=== PATIENT | female | born 2000 | race Caucasian/White ===

== ENCOUNTER 2022-04-30 12:40 | Emergency (ER) | payer SELFPAY ==
--- NOTE | ~2022-04-30 | XR_ITS ---
EXAMINATION: XR CHEST CLINICAL INFORMATION: Shortness of breath COMPARISON: None TECHNIQUE: 2 views of the chest were obtained. FINDINGS: Cardiac silhouette is normal in size. The lungs are well aerated. There is no lobar consolidation. No pleural effusion or pneumothorax. No acute osseous abnormality. XR/XR chest 2V IMPRESSION: No acute pulmonary pathology.
[2022-04-30 13:16] VITALS: BP 141/92; PULSE 78; RESP 20; TEMP 36.7; O2SAT 100; BMI 21.0
[2022-04-30 13:44] LABS: COVID-19 Test Negative (Negative)
--- NOTE | 2022-04-30 15:15 | ED.SOB ---
HPI - SOB/Dyspnea General Chief Complaint: Upper Respiratory Symptoms Stated Complaint: Diff breathing Time Seen by Provider: 04/30/22 15:14 Source: patient Mode of arrival: ambulatory Limitations: no limitations History of Present Illness HPI Narrative: 21 y/o female with history of mild intermittent asthma who presents to the ER for evaluation of shortness of breath? forceful coughing? that started 4 days ago. She reports a stabbing pain in her left chest under her breast. It does not radiate and it comes and goes. It is worse with coughing and deep breaths. She denies sick contacts. No fever or chills. No sputum production. She has not been using her albuterol inhaler because she didn't think it would help. MD elicited complaint: shortness of breath and cough Pertinent past history: asthma Onset (ago): day(s) (4) Timing: intermittent Severity: moderate Exacerbating factors: movement, coughing and inspiration Relieving factors: rest Known history of: asthma Associated symptoms: chest pain, pain with inspiration and cough Treatment prior to arrival: none Related Data Home oxygen amount: none Previous Rx's Medication Instructions Recorded benzonatate 100 mg capsule 100 mg PO TID PRN cough #20 caps 04/30/22 ibuprofen 600 mg tablet 600 mg PO Q8H PRN pain #14 tabs 04/30/22 Allergies Allergy/AdvReac Type Severity Reaction Status Date / Time amoxicillin Allergy Hives Verified 04/30/22 13:19 Review of Systems Review of Systems: Constitutional: No Fever, No Chills ENT/Mouth: No sore throat, No Rhinorrhea Cardiovascular: + Chest Pain, + SOB Respiratory: No Cough, No Sputum, + Wheezing, No dyspnea Gastrointestinal: No Nausea, No Vomiting, No Diarrhea, No abdominal Pain Musculoskeletal: No joint pain, No Myalgias Skin: No Skin Lesions, No rash Neuro: No Weakness, No Dizziness, No Headache Psych: + Anxiety/Panic, No Depression Heme/Lymph: No Bruising, No Lymphadenopathy PMFSH Social History Social History Advance Directives: No Advance Directives Information Provided: No Physical Exam Vital Signs: Vital Signs: Last Vital Signs Temp 98.0 F 04/30/22 13:16 Pulse 78 04/30/22 13:16 Resp 20 04/30/22 13:16 BP 141/92 H 04/30/22 13:16 Pulse Ox 100 04/30/22 13:16 O2 Del Method 04/30/22 13:16 BMI result Body Mass Index 21.0 Appearance: Alert. Oriented X3. No acute distress. Eyes: Pupils equal, round and reactive to light. ENT: Pharynx normal. Neck: Normal inspection. Neck supple. CVS: Normal heart rate and rhythm. Pulses normal. Respiratory: No respiratory distress. Breath sounds normal. Mild chest wall tenderness at distal sternum, and left lower ribs Abdomen: Soft and nontender. +BS x4 Skin: Skin warm and dry. Normal skin color. Normal skin turgor. No rashes. Extremities: No lower extremity edema. No calf tenderness. Neuro/psych: Oriented X 3. No motor deficit. No sensory deficit. anxious and tearful at times. Course Course Course Narrative: 21-year-old female with history of mild intermittent asthma presents to the ER for evaluation of a nonproductive cough and shortness of breath for last 4 days. She also has associated left-sided chest wall pains that are worse with movement and coughing. She has reproducible pains on examination. Her saturations on arrival are 100% on room air. She is breathing comfortably. She is not tachycardic. Her chest x-ray is negative for pneumonia. She is negative for COVID. She is worried she may have a blood clot. Her PERC score is negative and she has no risk factors. She is not on control. No evidence of DVT on examination. Patient was reassured and encourage follow-up with her provider at the health clinic. Will start her on treatment for costochondritis and antitussive agent. Encouraged her to use her p.r.n. albuterol. Return precautions were discussed. She is stable for discharge home. MDM - SOB/Dyspnea Lab Data Labs: Lab Results 04/30/22 Range/Units 13:25 COVID-19 ([facility]) Negative (Negative) COVID-19 Clin Com See Note Critical Care Time Critical Care Time Critical Care Time: No Discharge Plan Discharge Clinical Impression: Acute costochondritis, Cough Patient Disposition: Home, Self-Care Additional Instructions: Your chest x-ray today was normal. Urine negative for COVID. The pain in your chest is most likely due to muscle pain called costochondritis. Take the prescribed medications as directed. Recommend using your albuterol inhaler when you have coughing fits or when you feel short of breath. Follow up with your student health If you develop new or worsening symptoms call 911 or come back to the ER for further evaluation. Prescriptions: New ibuprofen 600 mg tablet 600 mg PO Q8H PRN (Reason: pain) Qty: 14 0RF benzonatate 100 mg capsule 100 mg PO TID PRN (Reason: cough) Qty: 20 0RF
== END 2022-04-30 15:50 | disposition home or self-care (01) ==
PROVIDERS: Emergency Provider Emergency Medicine
DX: R05.9 Cough, unspecified (principal); M94.0 Chondrocostal junction syndrome [Tietze]; Z20.822 Contact with and (suspected) exposure to COVID-19
CPT/HCPCS: 71046; 87635; 99282; 99283

== ENCOUNTER 2024-08-16 03:16 | Emergency (ER) | payer OTHER, SELFPAY ==
[2024-08-16 03:35] VITALS: BP 112/56; BP 115/80; PULSE 79; PULSE 86; RESP 18; TEMP 36.6; O2SAT 98; O2SAT 99; BMI 23.2
--- NOTE | 2024-08-16 03:40 | ED.PSYCH ---
HPI - Psych General Chief Complaint: ETOH/Substance Use Stated Complaint: MHC ETOH hx selfharm & Crohs, not eating recently Time Seen by Provider: 08/16/24 03:40 Source: patient Mode of arrival: EMS Limitations: no limitations History of Present Illness ED Provider: HPI Narrative: Patient's history of anxiety and Crohn's disease apparently had 3 glasses of wine earlier today been feeling anxious denies any SI or HI Related Data Previous Rx's ?Medication ?Instructions ?Recorded benzonatate 100 mg capsule 100 mg PO TID PRN cough #20 caps 04/30/22 ibuprofen 600 mg tablet 600 mg PO Q8H PRN pain #14 tabs 04/30/22 Allergies Allergy/AdvReac Type Severity Reaction Status Date / Time amoxicillin Allergy Hives Verified 08/16/24 03:43 Review of Systems Review of Systems: Yes all other systems are reviewed and are negative [facility] Social History Social History Alcohol intake: current Alcohol intake frequency: a few times a month Smoked in Last 30 Days: No Use of substances other than those prescribed or required for medical reasons: No Advance Directives: No Advance Directives Information Provided: Yes Do you have a plan to hurt others: No Plan Patient : No Physical Exam Vital Signs: Vital Signs: Last Vital Signs Temp 97.9 F 08/16/24 03:35 Pulse 79 08/16/24 03:35 Resp 18 08/16/24 03:35 BP 112/56 L 08/16/24 03:35 Pulse Ox 99 08/16/24 03:35 O2 Del Method Room Air 08/16/24 03:35 BMI result Body Mass Index 23.2 Appearance: Alert. Oriented X3. No acute distress. Anxious Eyes: PERRLA, No Nystagmus ENT: Pharynx normal. Oral Mucosa moist Neck: Normal inspection. Neck supple. CVS: Normal heart rate and rhythm. Pulses normal. Respiratory: No respiratory distress. Equal air entry bilateral, no wheezing/rales/rhonchi Abdomen: Soft and nontender. Bowel sounds are present, no mass palpable, no CVA tenderness Skin: Skin warm and dry. Normal skin color. Normal skin turgor. Extremities: No lower extremity edema. No calf tenderness psych: Anxious denies any SI or HI tried to throw up Neuro: Oriented X 3. No motor deficit. No sensory deficit.No cerebellar signs , cranial nerves II-XII intact Medications Administered Discontinued Medications Generic Name Dose Route Start Last Admin Trade Name Freq PRN Reason Stop Dose Admin Lorazepam 1 mg 08/16/24 03:40 08/16/24 03:47 Lorazepam 1 Mg Tablet PO 08/16/24 03:41 1 mg ONCE ONE Administration Ondansetron HCl 4 mg 08/16/24 03:42 08/16/24 03:47 Ondansetron Odt 4 Mg Tab.Rapdis TRANSLINGU 08/16/24 03:43 4 mg ONCE ONE Administration Medical Decision Making Medical Decision Making [facility] Narrative: Patient is feeling much better no slept all night will discharge patient back to home denies any significant anxiety at this time Discharge Plan Discharge Clinical Impression: Anxiety Patient Disposition: Home, Self-Care Instructions: Anxiety (ED) Additional Instructions: Continue medications and follow up with your therapist Prescriptions: No Action ibuprofen 600 mg tablet 600 mg PO Q8H PRN (Reason: pain) Qty: 14 0RF benzonatate 100 mg capsule 100 mg PO TID PRN (Reason: cough) Qty: 20 0RF Print Language: Sinhala
[2024-08-16] MEDS: LORazepam 1 MG TABLET PO (03:47)
[2024-08-16] MEDS: Ondansetron ODT 4 MG TAB.RAPDIS TRANSLINGU (03:47)
[2024-08-16 07:56] VITALS: BP 98/55; PULSE 64; RESP 16; TEMP 36.8; O2SAT 97
== END 2024-08-16 09:14 | disposition home or self-care (01) ==
PROVIDERS: Emergency Provider Internal Medicine
DX: F41.1 Generalized anxiety disorder (principal); K50.90 Crohn's disease, unspecified, without complications
CPT/HCPCS: 99283; 99284